=== PATIENT | male | born 1985 | race Caucasian/White ===

== ENCOUNTER 2024-10-24 10:09 | Day surgery (SDC) | payer OTHER ==
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
[2024-10-24] MEDS ORDERED: TYLENOL EXTRA STRENGTH 500 MG ONE (10:15)
[2024-10-24] MEDS ORDERED: Decadron 4 MG ONE (10:15)
[2024-10-24] MEDS ORDERED: CEFAZOLIN 2 GM/100 ML NaCl 2 GM/100 ML IVPB IV ONE (10:15)
[2024-10-24] MEDS ORDERED: NEURONTIN ONE ×2 (10:15→10:16)
[2024-10-24] MEDS ORDERED: celeBREX 100 MG ONE (10:16)
[2024-10-24] MEDS ORDERED: Lactated Ringers 1,000 ML IV ONE (10:18)
[2024-10-24] MEDS: Decadron 4 MG PO ONE (10:21)
[2024-10-24] MEDS: celeBREX 100 MG PO ONE (10:21)
[2024-10-24] MEDS: TYLENOL EXTRA STRENGTH 500 MG PO ONE (10:22)
[2024-10-24] MEDS: NEURONTIN PO ONE (10:22)
[2024-10-24] MEDS: Lactated Ringers 1,000 ML IV SCH (10:23)
[2024-10-24] MEDS ORDERED: Pepcid 20 MG VIAL IV ONE (10:45)
[2024-10-24] MEDS ORDERED: Transderm Scop 1.5MG Patch ONE (10:45)
[2024-10-24] MEDS ORDERED: Reglan 10 MG/2 ML ONE (10:45)
[2024-10-24] MEDS: Reglan 10 MG/2 ML IV ONE (10:48)
[2024-10-24] MEDS: Transderm Scop 1.5MG Patch TOP PRN (10:48)
[2024-10-24] MEDS: Pepcid 20 MG VIAL IV ONE (10:48)
[2024-10-24] MEDS ORDERED: Sensorcaine 0.25% 10 ML ONE (10:58)
[2024-10-24] MEDS: CEFAZOLIN 2 GM/100 ML NaCl 2 GM/100 ML IVPB IV SCH (11:32)
[2024-10-24] MEDS ORDERED: TORAdol 30 mg Injection ONE (11:40)
[2024-10-24] MEDS ORDERED: SUBLIMAZE 100 MCG/2 ML ONE (11:40)
[2024-10-24] MEDS ORDERED: ROCURONIUM BROMIDE IV ONE (11:40)
[2024-10-24] MEDS ORDERED: propofoL IV ONE (11:40)
[2024-10-24] MEDS ORDERED: dexAMETHasone sodium phosphate ONE (11:40)
[2024-10-24] MEDS ORDERED: BRIDION 200MG/2ML IV ONE (11:40)
[2024-10-24] MEDS ORDERED: Zofran 4 MG/2 ML VIAL ONE (11:40)
[2024-10-24] MEDS ORDERED: Xylocaine-Mpf 2% 5 Ml Vial ONE (11:40)
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
[2024-10-24 13:15] VITALS: RESP 18; TEMP 96.9
[2024-10-24 13:26] VITALS: BP 129/86; PULSE 74; O2SAT 97
--- NOTE | 2024-10-24 16:54 | XRAY ---
1 second of fluoroscopy was used in surgery for a right upper quadrant foreign body removal.
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
== END 2024-10-24 13:29 | disposition home or self-care (01) ==
LOC: SDC 10:09
PROVIDERS: ATTEND Surgery
DX: M79.5 Residual foreign body in soft tissue (principal)
CPT/HCPCS: 74018; 76000; 87046; 87070; 87075; 87116; 87205; 87206; J0690; J1100; J1885; J2405; J2704; J3010; A9270-GY